=== PATIENT | female | born 1990 | race American Indian/Alaskan Native ===

== ENCOUNTER 2019-05-11 05:59 | Emergency (ER) | payer SELFPAY ==
[2019-05-11] MEDS ORDERED: IPRATROPIUM 0.02% NEBU 2.5 ML IH ONE ×2 (06:06→06:38)
[2019-05-11] MEDS ORDERED: ALBUTEROL 2.5 MG/3 ML NEBU IH ONE ×3 (06:06→06:38)
[2019-05-11] MEDS ORDERED: diphenhydrAMINE 50 MG/ML VIAL IV STA (06:21)
[2019-05-11] MEDS ORDERED: predniSONE 20 MG TAB PO STA (06:22)
[2019-05-11 06:23] VITALS: BP 124/81
[2019-05-11] MEDS ORDERED: diphenhydrAMINE 50 MG/ML VIAL IM ONE (06:23)
[2019-05-11] MEDS ORDERED: IPRATROPIUM/ALBUTEROL SULFATE 3 ML AMPUL.NEB IH ONE (06:26)
[2019-05-11] MEDS ORDERED: MAGNESIUM SULFATE 2 GM/50 ML BAG IV ONE (06:26)
[2019-05-11] MEDS ORDERED: methylPREDNISolone Sod Succinate 125 MG/2 ML INJ IV ONE (06:26)
[2019-05-11] MEDS ORDERED: SODIUM CHLORIDE 0.9% 1000 ML 1,000 ML IV ONE (06:27)
--- NOTE | 2019-05-11 06:53 | Emergency Department Report ---
ED General Adult HPI - General Chief complaint: Dyspnea/Respdistress Stated complaint: EYAL Time Seen by Provider: 05/11/19 06:49 Source: patient Mode of arrival: Ambulatory Limitations: No Limitations - History of Present Illness Initial comments: This is a 28-year-old female reports exacerbation of asthma over the last 1 day. She states that she uses just a hand-held inhaler. Does not have a home neb machine. She had been admitted as a child with an asthma exacerbation but not since. She reports some dry cough recently but no fever or chills. She is not reporting chest pain, leg pain or swelling. She's had no recent travel. -: Gradual, days(s) Severity scale (0 -10): 0 Associated Symptoms: denies other symptoms, cough Treatments Prior to Arrival: other (MDI) - Related Data Previous Rx's Medication Instructions Recorded Last Taken Type Albuterol Sulfate [Proventil Hfa] 6.7 gm IH Q4H PRN #1 hfa.aer.ad 05/11/19 Unknown Rx predniSONE [Deltasone] 40 mg PO QDAY #10 tab 05/11/19 Unknown Rx Allergies Allergy/AdvReac Type Severity Reaction Status Date / Time shellfish derived Allergy Anaphylaxis Verified 05/11/19 06:22 ED Review of Systems ROS: Stated complaint: EYAL Other details as noted in HPI Constitutional: denies: chills, fever Eyes: denies: eye pain, eye discharge, vision change ENT: denies: ear pain, throat pain Respiratory: cough, wheezing Cardiovascular: denies: chest pain, palpitations Endocrine: no symptoms reported Gastrointestinal: denies: abdominal pain, nausea, diarrhea Genitourinary: denies: urgency, dysuria, discharge Musculoskeletal: denies: back pain, joint swelling, arthralgia Skin: denies: rash, lesions Neurological: denies: headache, weakness, paresthesias Psychiatric: denies: anxiety, depression Hematological/Lymphatic: denies: easy bleeding, easy bruising ED Past Medical Hx - Past Medical History Previous Medical History?: Yes Hx Asthma: Yes - Surgical History Past Surgical History?: No - Social History Smoking Status: Never Smoker Substance Use Type: None - Medications Home Medications: Home Medications Medication Instructions Recorded Confirmed Last Taken Type Albuterol Sulfate [Proventil Hfa] 6.7 gm IH Q4H PRN #1 hfa.aer.ad 05/11/19 Unknown Rx predniSONE [Deltasone] 40 mg PO QDAY #10 tab 05/11/19 Unknown Rx ED Physical Exam - General Limitations: No Limitations General appearance: alert, in no apparent distress - Head Head exam: Present: atraumatic, normocephalic - Eye Eye exam: Present: normal appearance. Absent: scleral icterus - ENT ENT exam: Present: mucous membranes moist - Neck Neck exam: Present: normal inspection - Respiratory Respiratory exam: Present: normal lung sounds bilaterally, wheezes (mild expiratory wheeze). Absent: respiratory distress - Cardiovascular Cardiovascular Exam: Present: normal rhythm, tachycardia (mildly). Absent: systolic murmur, diastolic murmur, rubs, gallop - GI/Abdominal GI/Abdominal exam: Present: soft, normal bowel sounds. Absent: distended, tenderness, guarding, rebound, rigid - Extremities Exam Extremities exam: Present: normal inspection, full ROM. Absent: pedal edema, joint swelling, calf tenderness - Back Exam Back exam: Present: normal inspection - Neurological Exam Neurological exam: Present: alert, oriented X3, CN II-XII intact. Absent: motor sensory deficit - Psychiatric Psychiatric exam: Present: normal affect, normal mood - Skin Skin exam: Present: warm, dry, intact, normal color. Absent: rash ED Course Vital Signs 05/11/19 05/11/19 06:19 06:41 Pulse Rate 131 H Pulse Rate [ 122 H Anterior Bilateral Throughout] Respiratory 22 Rate Respiratory 26 H Rate [Anterior Bilateral Throughout] Blood Pressure 124/81 [Left] O2 Sat by Pulse 99 Oximetry - Reevaluation(s) Reevaluation #1: 05/11/19 06:52 Nebulized therapy, Solu-Medrol, magnesium and fluids Reevaluation #2: Improved and appropriate for outpatient disposition. 05/11/19 10:04 Critical care attestation.: If time is entered above; I have spent that time in minutes in the direct care of this critically ill patient, excluding procedure time. ED Disposition Clinical Impression: Asthma exacerbation Qualifiers: Asthma severity: moderate Asthma persistence: persistent Qualified Code(s): J45.41 - Moderate persistent asthma with (acute) exacerbation Disposition: TO HOME OR SELFCARE Is pt being admited?: No Does the pt Need Aspirin: No Condition: Stable Instructions: Asthma (ED) Additional Instructions: Return to the emergency department any acute change or problem. Rx as directed. Follow-up with primary care physicians. Prescriptions: predniSONE [Deltasone] 40 mg PO QDAY #10 tab Albuterol Sulfate [Proventil Hfa] 6.7 gm IH Q4H PRN #1 hfa.aer.ad PRN Reason: Wheezing Referrals: TAVON KIRKLAND MD [Primary Care Provider] - 3-5 Days Time of Disposition: 10:05
[2019-05-11 09:34] LABS: HCG Qualitative,Urine Negative (Negative)
--- NOTE | 2019-05-11 10:07 | XRay Report ---
CHEST 2 VIEWS INDICATION / CLINICAL INFORMATION: sob, wheeze, cough. COMPARISON: None available. FINDINGS: SUPPORT DEVICES: None. HEART / MEDIASTINUM: No significant abnormality. LUNGS / PLEURA: No significant pulmonary or pleural abnormality. No pneumothorax. ADDITIONAL FINDINGS: No significant additional findings. IMPRESSION: 1. No acute findings. Signer Name: Renny Perez MD Signed: 05/11/2019 10:03 AM Workstation Name: [id number]
== END 2019-05-11 10:24 | disposition home or self-care (01) ==
LOC: ED 05:59
DX: J45.901 Unspecified asthma with (acute) exacerbation (principal)
CPT/HCPCS: 71046; 81025; 94644; 96365; 96372; 96375; 99284; J1200; J2930; J3475; J7030; J7512